=== PATIENT | female | born 1940 | race Caucasian/White ===

== ENCOUNTER → 2016-08-18 | Outpatient (CLI) | payer MEDICARE, OTHER ==
[~2016-08-18] MED LIST: ASPIRIN325 MG PO; COZAAR25 MG PO; ECOTRIN325 MG PO; GLUCOPHAGE1000 MG PO; LEVEMIR FL100 UNIT/1 SUBCUT; LOVASTATIN40 MG PO; NORCO 325-5 MG1 TAB PO; REQUIP0.5 MG PO; SENNA-TIME S1 TAB PO; TRAMADOL HCL50 MG PO
== END | disposition short-term general hospital (02) ==
LOC: CLORTH 08:02
DX: Z01.818 Encounter for other preprocedural examination (principal)